=== PATIENT | female | born 1975 | race American Indian/Alaskan Native ===

== ENCOUNTER 2017-06-06 05:43 | Emergency (ER) | payer BC ==
[2017-06-06 05:50] VITALS: BMI 31.4
[2017-06-06 06:05] VITALS: BP 118/86; PULSE 91; RESP 18; TEMP 98; O2SAT 99
--- NOTE | 2017-06-06 06:05 | ED PDOC ---
Arrival/HPI - General Chief Complaint: Pain, Chronic Time Seen by Provider: 06/06/17 05:50 Historian: Patient - History of Present Illness Narrative History of Present Illness (Text): 06/06/17 06:04 Sandra Epperson is a 42 year old female who presents to the Emergency department complaining of right knee pain s/p fall. Patient states she fell and landed on to her right knee 2 days prior. Patient now complaining of right knee pain/swelling. Patient notes she has experienced pain in her right knee in the past. Patient denies any decreased range of motion, weakness/numbness/tingling in the extremity, calf pain, recent surgery, or any other complaints. Time/Duration: < week (2 days) Symptom Onset: Gradual Symptom Course: Unchanged Activities at Onset: Light Context: Walking, Home Past Medical History - Provider Review Nursing Documentation Reviewed: Yes - Psychiatric Hx Psychophysiologic Disorder: No Hx Substance Use: No - Surgical History Hx Section: Yes Family/Social History - Physician Review Nursing Documentation Reviewed: Yes Family/Social History: Unknown Family HX Smoking Status: Light Smoker < 10 Cigarettes Daily Hx Alcohol Use: Yes Frequency of alcohol use: Socially Hx Substance Use: No Allergies/Home Meds Allergies/Adverse Reactions: Allergies No Known Allergies Allergy (Verified 06/06/17 06:02) Review of Systems - Physician Review All systems were reviewed & negative as marked: Yes - Review of Systems Constitutional: Normal. absent: Fevers Eyes: Normal ENT: Normal Respiratory: Normal. absent: SOB, Cough Cardiovascular: Normal. absent: Chest Pain, Calf Pain Gastrointestinal: Normal. absent: Abdominal Pain, Diarrhea, Nausea, Vomiting Genitourinary Female: Normal. absent: Dysuria, Frequency, Hematuria, Urine Output Changes Musculoskeletal: Arthralgias (+right knee pain/swelling). absent: Neck Pain Skin: Normal. absent: Rash Neurological: Normal. absent: Headache, Dizziness Endocrine: Normal Hemo/Lymphatic: Normal Psychiatric: Normal Physical Exam Vital Signs Reviewed: Yes Vital Signs Temp Pulse Resp BP Pulse Ox 06/06/17 05:50 98.0 F 91 H 18 118/86 99 Temperature: Afebrile Blood Pressure: Normal Pulse: Regular Respiratory Rate: Normal Appearance: Positive for: Well-Appearing, Non-Toxic, Comfortable Pain Distress: None Mental Status: Positive for: Alert and Oriented X 3 - Systems Exam Head: Present: Atraumatic, Normocephalic Pupils: Present: PERRL Extroacular Muscles: Present: EOMI Conjunctiva: Present: Normal Upper Extremity: Present: Normal Inspection. No: Cyanosis, Edema Lower Extremity: Present: NORMAL PULSES, Normal ROM, Swelling (Right knee swelling), Neurovascularly Intact, Capillary Refill < 2 s. No: Edema, CALF TENDERNESS, Cyanosis, Tenderness, Erythema, Deformity, Temperature Abnormalties Neurological: Present: GCS=15, CN II-XII Intact, Speech Normal Skin: Present: Warm, Dry, Normal Color. No: Rashes Psychiatric: Present: Alert, Oriented x 3, Normal Insight, Normal Concentration Medical Decision Making ED Course and Treatment: 06/06/17 06:04 Impression: 42 year old female complaining of right knee pain/swelling s/p fall 2 days ago. Plan: -- XR Right Knee -- Reassess and disposition Progress Notes: 06/06/17 06:32 Reviewed radiology, XR Right Knee shows no acute processes/no fractures. - RAD Interpretation Radiology Orders: 06/06/17 06:03 KNEE RIGHT 2 VIEWS (AP & LAT) [RAD] Stat Tool And Die Inspector: ED Physician - Medication Orders Current Medication Orders: Discontinued Medications Ibuprofen (Motrin Tab) 400 mg PO ONCE STA Stop: 06/06/17 06:53 Last Admin: 06/06/17 06:59 Dose: 400 mg - Scribe Statement The provider has reviewed the documentation as recorded by the Farshad Norton Provider Scribe Attestation: All medical record entries made by the Scribmarah were at my direction and personally dictated by me. I have reviewed the chart and agree that the record accurately reflects my personal performance of the history, physical exam, medical decision making, and the department course for this patient. I have also personally directed, reviewed, and agree with the discharge instructions and disposition. Disposition/Present on Arrival - Present on Arrival Any Indicators Present on Arrival: No History of DVT/PE: No History of Uncontrolled Diabetes: No Urinary Catheter: No History of Decub. Ulcer: No History Surgical Site Infection Following: None - Disposition Have Diagnosis and Disposition been Completed?: Yes Diagnosis: Right knee sprain Disposition: HOME/ ROUTINE Disposition Time: 07:00 Condition: GOOD Discharge Instructions (ExitCare): Knee Sprain (ED) Additional Instructions: use knee brace 4 to 5 days Prescriptions: Naproxen 375 mg PO BID #14 tablet Referrals: Wilman Cheung III, MD [Medical Doctor] - Follow up with primary Forms: [employer]wolf (Bengali)
--- NOTE | 2017-06-06 10:23 | RAD ---
PROCEDURE: Right Knee Radiographs. HISTORY: fall COMPARISON: None. FINDINGS: BONES: Normal. No fracture. JOINTS: Normal. No osteoarthritis. JOINT EFFUSION: None. OTHER FINDINGS: There is a moderate amount of subcutaneous edema IMPRESSION: No acute findings
== END 2017-06-06 06:51 | disposition home or self-care (01) ==
LOC: ED 05:43 → MERGE 05:43 → ED 06:51
DX: S83.91XA Sprain of unspecified site of right knee, initial encounter (principal); W19.XXXA Unspecified fall, initial encounter; F17.210 Nicotine dependence, cigarettes, uncomplicated